=== PATIENT | male | born 1955 | race Caucasian/White ===

== ENCOUNTER 2018-01-14 11:09 | Emergency (ER) | payer OTHER ==
[~2018-01-14] VITALS: Ht 172.7 cm; Wt 85.3 kg
[~2018-01-14 11:09] MED LIST: ALEVE220 MG PO; ASPIR 8181 MG PO; CITALOPRAM HBR40 MG PO; FISH OIL 1,001000 M2 PO; LIPITOR10 MG PO; PERCOCET 10-321 EACH PO; VIAGRA100 MG PO; XARELTO10 M1 PO
[2018-01-14] MEDS ORDERED: AUGMENTIN 875-1 EACH PO (11:19)
[2018-01-14] MEDS ORDERED: FLONASE 0.05%50 MCG NASAL (11:19)
== END 2018-01-14 11:35 | disposition home or self-care (01) ==
LOC: ER 11:09
DX: J32.9 Chronic sinusitis, unspecified (principal); E78.00 Pure hypercholesterolemia, unspecified; F32.9 Major depressive disorder, single episode, unspecified; Z96.642 Presence of left artificial hip joint

== ENCOUNTER → 2020-07-28 | Outpatient (CLI) | payer OTHER ==
[~2020-07-28] MED LIST changes: +ADDERALL 20 MG20 M1 PO; +ASA81BEC PO; +AUGMENTIN 875-1 EACH PO; +FLONASE 0.05%50 MCG NASAL; +MULTI VITAMIN1 EACH PO
== END ==
LOC: LAB 08:35
PROVIDERS: ATTEND Orthopaedic Surgery
DX: Z01.812 Encounter for preprocedural laboratory examination (principal); Z20.828 Contact with and (suspected) exposure to other viral communicable diseases

== ENCOUNTER 2020-08-02 06:17 | Inpatient (IN) | payer OTHER ==
[2020-07-14 09:02] LABS: HEMATOCRIT 43.2 % (42.0-52.0); HEMOGLOBIN 14.4 gm/dL (14.0-18.0); MCH 30.4 pg (26.0-34.0); MCHC 33.3 g/dL (28.0-37.0); MCV 91.4 fL (80.0-100.0); RBC 4.73 mil/uL (4.50-6.00); RDW 12.8 % (10.5-14.5); WBC 6.1 thou/uL (4.0-11.0)
[2020-07-14 09:14] LABS: ALBUMIN 3.7 g/dL (3.4-5.0); CALCIUM 8.9 mg/dL (8.5-10.1); POTASSIUM 3.9 mmol/L (3.5-5.1)
[2020-07-14 09:21] LABS: URINE BILIRUBIN NEGATIVE (Negative); URINE BLOOD NEGATIVE (Negative); URINE CLARITY CLEAR; URINE COLOR YELLOW; URINE GLUCOSE-RANDOM* NEGATIVE (Negative); URINE KETONES NEGATIVE (Negative); URINE LEUKOCYTES-REFLEX NEGATIVE (Negative); URINE NITRITE-REFLEX NEGATIVE (Negative); URINE PROTEIN (DIPSTICK) NEGATIVE (Negative); URINE SPECIFIC GRAVITY 1.025 (1.005-1.035); URINE UROBILINOGEN 0.2 E.U./dl (0.2-1.0)
[~2020-08-02] VITALS: Ht 172.7 cm; Wt 88.0 kg
[2020-08-02 07:18] VITALS: BP 146/82
--- NOTE | 2020-08-02 09:48 | O ---
[facility] [place] [address] OPERATIVE REPORT Name: ANAY TUTTLE Room #: 150-1 ADM IN M.R.#: [id number] Admission: 08/02/20 Attend Phys: Price Horton MD Discharge: Date of : 51 Report #: [id number] THIS REPORT FOR: cc: Yves Montiel MD, Stanley P. MD Clymer, David J. MD ~ DATE OF SERVICE: 08/02/2020 PREOPERATIVE DIAGNOSIS: End-stage degenerative arthritis, right hip. POSTOPERATIVE DIAGNOSIS: End-stage degenerative arthritis, right hip. PROCEDURE: Right total hip replacement. SURGEON: Price Horton MD INDICATIONS: This active and fit 65-year-old gentleman has moderate progressive degenerative arthritis in multiple areas. He previously underwent left total hip replacement and is doing quite nicely on that side. He is now having progressive pain and limited range of motion on the right hip and is anxious to proceed with right total hip replacement. DESCRIPTION OF PROCEDURE: The patient was taken to the operating room where he was placed under general anesthesia. Prophylactic intravenous antibiotics were administered. He was turned to the left lateral decubitus position. The right hip, thigh and leg were meticulously prepped and draped. A slightly curving posterolateral skin incision was made. This was carried through subcutaneous tissues and fascia and the gluteus was spread bluntly exposing the short external rotators and posterior capsule. They were taken down and preserved and tagged with several #1 Tevdek sutures. The hip was dislocated posteriorly. Marked degenerative change on both the femoral head and acetabulum was noted. A femoral neck osteotomy was performed and the canal was opened using the Babin and Nephew hip system. A size 15 trial stem seemed to fit quite nicely and the calcar was trimmed down to that level. The trial component was removed and attention directed to the acetabulum. Good exposure was established. The acetabulum was sequentially reamed, gradually advancing to a 54 mm reamer. The Babin and Nephew size 54 StikTite 3-hole shell was then inserted. This was placed in alignment with his true acetabulum, positioning this in about 45 degrees off of vertical and about 20 degrees of anteversion. It was impacted into position and seated nicely and appeared to be quite stable. Two cancellous screws were placed through the apical holes engaging good periacetabular bone with good purchase adding nicely to the stability. A 36-mm polyethylene liner was then inserted, placing this with the 20-degree elevated rim at about the 10 o'clock posterior position. This was seated nicely and appeared to be secure. The permanent Babin and Nephew size 15 standard offset Synergy porous femoral [address] [address] OPERATIVE REPORT Name: MARRYANAY Room #: 150-1 [facility] IN M.R.#: [id number] Admission: 08/02/20 Attend Phys: Price Horton MD Discharge: Date of : 51 Report #: [id number] component was then inserted. This was positioned about 20 degrees of anteversion. It seated nicely and appeared to be secure. A trial reduction was performed and the hip seemed best suited for a +4 mm neck length. This resulted in satisfactory alignment, range of motion, stability and leg length. The Babin and Nephew Oxinium size 36 mm head with a +4 mm neck length was selected. This was impacted on the Benitez taper and the hip was reduced, once again alignment, range of motion, stability and leg length were assessed and felt to be acceptable. The capsule and short external rotators were then repaired back to bone using #1 Tevdek sutures, passed through small drill holes in the greater trochanter. A single Hemovac was left in the wound exiting through a separate stab incision. The fascia was closed with multiple #1 Vicryl sutures. The subcutaneous tissues were closed with 0 Monocryl. The skin was closed with skin jerman. A sterile dressing was applied. The patient was awakened and returned to recovery room in good condition. <ELECTRONICALLY SIGNED> By: Price Horton MD 08/02/20 0948 [id number] Price Horton MD /nt
--- NOTE | 2020-08-02 15:46 | NUR ---
PT ADMITTED RELATED TO RT TOTAL HIP REPLACEMENT. CM REVIEWED CHART AND SPOKE WITH CARE TEAM. CM MET WITH PT AT BEDSIDE THIS DAY. PT IS A&O X4. CM ROLE INTRODUCED. PT INDICATED HE RESIDES IN A HOUSE WITH HIS SPOUSE WITH 2 STEPS TO ENTER AND NO STEPS HE NEEDS TO USE INSIDE. 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 PT INDICATED HE WILL NEED A FWW ISSUED UPON DC. PT INDICATED HE HADN'T SPOKEN WITH DR. GODOY RELATED TO HH VS. OP THERAPY UPON DC YET BUT THAT HE WOULD PREFER HH UPON DC. CM TO FOLLOW INDICATED WITH DC PLANNING.
[2020-08-02 16:56] VITALS: BP 123/71
[2020-08-02 19:51] VITALS: BP 108/63
--- NOTE | 2020-08-03 03:15 | NUR ---
ASSUMED CARE OF PT @ 2100. PT A&OX4. IV IN LEFT HAND LEAKING. NEW IV 22G INSERTED. PT VOIDS APPRIOPRAITELY. DENIES N/V FOR THIS NURSE. PER REPORT PT HAD X1 EMESIS. FALL PREC IN PLACE AND CALL LIGHT AT REACH WILL CONT TO MONITOR.
[2020-08-03 04:54] LABS: HEMOGLOBIN 11.7 gm/dL (14.0-18.0); MCH 30.6 pg (26.0-34.0); MCHC 33.6 g/dL (28.0-37.0); MCV 91.1 fL (80.0-100.0); RBC 3.84 mil/uL (4.50-6.00); WBC 8.5 thou/uL (4.0-11.0)
[2020-08-03 07:35] VITALS: BP 124/64
[2020-08-03] MEDS ORDERED: COLACE100 MG PO (08:25)
[2020-08-03 09:25] LABS: CALCIUM 9.2 mg/dL (8.5-10.1); MAGNESIUM 2.2 mg/dL (1.8-2.4); POTASSIUM 4.5 mmol/L (3.5-5.1)
--- NOTE | 2020-08-03 10:46 | NUR ---
Assumed care of pt at 0700. Pt a&ox4. Pain controlled with prn pain meds. Hemovac drain removed. Dressing c/d/i. Pt worked with physical therapy and was cleared to discharge. Walker delivered to room. Call light within reach. Will discharge to home.
[2020-08-03 10:48] VITALS: BP 124/64
--- NOTE | 2020-08-03 12:00 | NUR ---
CARE TEAM INDICATED THAT PT IS MEDICALLY STABLE TO DC HOME THIS DAY. PT WAS ISSUED A FWW FOR HOME USE BY PROVIDER [employer]. PT IS TO DC HOME WITH SPOUSE WITH FOLLOW UP IN A WEEK WITH DR. GODOY. NO OTHER CM INTERVENTION INDICATED. CASE CLOSED.
--- NOTE | 2020-08-05 08:24 | D ---
[facility] [place] [address] DISCHARGE SUMMARY Name: ANAY TUTTLE Room #: 441-P [facility] IN ..#: [id number] Admission: 08/02/20 Attend Phys: Price Horton MD Discharge: 08/03/20 Date of : 51 Report #: [id number] THIS REPORT FOR: cc: Yves Montiel MD, Stanley P. MD Clymer, David J. MD ~ DATE OF SERVICE: 08/03/2020 FINAL DIAGNOSIS: End-stage degenerative arthritis, right hip. OPERATION PROCEDURES: Right total hip replacement. HISTORY OF PRESENT ILLNESS: This active and fit 65-year-old gentleman complains of progressive right hip pain. He has had similar problems on the left side with total hip replacement a number of years ago. Now, the right hip is more symptomatic and he has elected to go ahead with right total hip replacement. HOSPITAL COURSE: The patient was admitted and taken to the operating room on 08/02, he underwent right total hip replacement, which he tolerated quite well. Postoperatively, he is doing quite nicely today. He has already been up with therapy. He is taking a regular diet. His pain is well controlled on oral analgesics. He started an anticoagulation regimen with Xarelto. The dressing is dry. Hemovac output is minimal. He hopes to go home today. Pending his performance with physical therapy later today assuming he does pass and seems to be safe and independent, then will plan for discharge home today with family assistance. DISCHARGE MEDICATIONS: Include citalopram 40 mg daily, Adderall 20 mg t.i.d., Xarelto 10 mg daily, hydrocodone 10 mg q.4-6 hours p.r.n. for pain. He will continue with gentle activity at home. He will return to my office in 1 week if there are any problems or questions or in 2 weeks after the hols for suture removal. <ELECTRONICALLY SIGNED> By: Price Horton MD 08/05/20823 5 7 Price Horton MD /nt
== END 2020-08-03 12:02 | disposition home or self-care (01) | DRG 470 ==
LOC: TBA 06:17 → 4S 06:17 → PRE 08:29 → 4S 10:54 → PRE 12:44 → 4S 08-03 12:02
PROVIDERS: ADMIT Orthopaedic Surgery; ATTEND Orthopaedic Surgery
PROC: 0SR906Z Replacement of Right Hip Joint with Oxidized Zirconium on Polyethylene Synthetic Substitute, Open Approach (ICD-10-PCS; principal; 2020-08-02)
DX: M16.11 Unilateral primary osteoarthritis, right hip (principal); F32.9 Major depressive disorder, single episode, unspecified; E78.5 Hyperlipidemia, unspecified; F90.9 Attention-deficit hyperactivity disorder, unspecified type; F41.9 Anxiety disorder, unspecified; Z96.642 Presence of left artificial hip joint
CPT/HCPCS: 10102; 50010; 50101; 50382; 50414; 51412; 53000; 56521; 56525; 56530; 57095; 57103; 62110; 62900; 70005